=== PATIENT | male | born 1970 | race Hispanic/Latino ===

== ENCOUNTER 2018-11-05 11:20 | Day surgery (SDC) | payer BC ==
[~2018-11-05] VITALS: Ht 180.3 cm; Wt 84.5 kg
[2018-11-05] VITALS (19 sets, daily range): BP systolic 104–118; BP diastolic 49–80
[~2018-11-05 11:20] MED LIST: MULT-40 PO; SODIUM CHLORIDE 0.9% 1000ML 1,000 ML IV ONE
[2018-11-05] MEDS ORDERED: IOHEXOL-350 50ML VIAL IV ONE (11:58)
[2018-11-05] MEDS ORDERED: PROPOFOL 1000 MG/100 ML 100 ML IV ONE (12:48)
[2018-11-05] MEDS ORDERED: FENTANYL CITRATE PF 50 MCG/1 ML 2ML VIAL ONE (13:18)
[2018-11-05] MEDS ORDERED: INDOMETHACIN 50 MG SUPP.RECT RC SCH (14:15)
--- NOTE | 2018-11-05 16:20 | NUR ---
NOTE STEPPED OUT, SON WILL DRIVE PT HOME. WAITING ON SON. Addendum: 11/05/18 at 1642 by KRISSY COLE RN RN ADDENDUM: HAS NOT COME BACK, PT CALLED ON PHONE, NO ANSWER. PT CALLED SON TO DRIVE HIM HOME.
--- NOTE | 2018-11-05 16:35 | NUR ---
NOTE PT DISCHARGED VIA WHEELCHAIR WITH SON. PT STABLE. AFEBRILE. DENIES PAIN, OR ABDOMINAL PAIN. ABDOMEN SOFT. NO NAUSEA OR VOMITING. NO SIGNS OF BLEEDING NOTED. DISCHARGE INSTRUCTIONS GIVEN TO EARLIER.
== END 2018-11-05 16:35 | disposition home or self-care (01) ==
LOC: ENDO 11:20 → DAH 11:20 → ENDO 16:35
PROVIDERS: ATTEND Internal Medicine
DX: K80.50 Calculus of bile duct without cholangitis or cholecystitis without obstruction (principal)
CPT/HCPCS: 43265; 43273; 43276; 74330; A4606; C1769; C1773; J2704; J3010; J7030; Q9967; 43264; 43274; 43275; G9654

== ENCOUNTER 2018-12-29 09:38 | Day surgery (SDC) | payer BC ==
[~2018-12-29] VITALS: Ht 180.3 cm; Wt 86.6 kg
[2018-12-29] VITALS (13 sets, daily range): BP systolic 107–126; BP diastolic 60–78
[2018-12-29] MEDS ORDERED: PROPOFOL 1000 MG/100 ML 100 ML IV ONE (10:43)
[2018-12-29] MEDS ORDERED: IOHEXOL-350 50ML VIAL IV ONE (11:15)
[2018-12-29] MEDS ORDERED: INDOMETHACIN 50 MG SUPP.RECT RC SCH (11:15)
[2018-12-29] MEDS ORDERED: SUCCINYLCHOLINE CHLORIDE 20 MG/ML 10 ML VIAL ONE (11:15)
[2018-12-29] MEDS ORDERED: FENTANYL CITRATE PF 50 MCG/1 ML 2ML VIAL ONE (11:35)
[2018-12-29] MEDS ORDERED: PROPOFOL 10 MG/ML 20ML VIAL IV ONE ×3 (12:02→12:33)
--- NOTE | 2018-12-29 14:30 | NUR ---
INSTRUCTED PT TO MECHATRONICS ENGINEER ORDER AT DR. MAR'S OFFICE TODAY OR TOMORROW FOR CMP LAB DRAW. POST CARE INSTRCTIONS GIVEN TO PT, INSTRUCTED PT TO STAY W/O FOOD OR LIQUIDS FOR 6 HOURS, MAY RESUME EATING AT 7 PM TODAY, TO START WITH LIQUID DIET THEN ADVANCE TOLERATED TO SOFT THEN SOLIDS. PT STABLE, NO C/O PAIN. PT DRESSED, TAKEN TO CAR IN WHEELCHAIR, DRIVEN HOME BY GIRLFRIEND.
== END 2018-12-29 14:30 | disposition home or self-care (01) ==
LOC: DAH 09:38 → ENDO 09:38
PROVIDERS: ATTEND Internal Medicine
DX: K80.50 Calculus of bile duct without cholangitis or cholecystitis without obstruction (principal); Z98.890 Other specified postprocedural states; Z79.899 Other long term (current) drug therapy
CPT/HCPCS: 43265; 43273; 43275; 74330; A4606; C1769; C1773; J0330; J2704 ×4; J3010; J7030; Q9967; 43262; 43264; 43277; G9654

== ENCOUNTER 2019-04-07 06:02 | Day surgery (SDC) | payer BC ==
[2019-04-07] VITALS (15 sets, daily range): BP systolic 106–126; BP diastolic 53–75
[~2019-04-07] VITALS: Ht 177.8 cm; Wt 84.4 kg
[~2019-04-07 06:02] MED LIST changes: -SODIUM CHLORIDE 0.9% 1000ML 1,000 ML IV ONE
[2019-04-07] MEDS ORDERED: SODIUM CHLORIDE 0.9% 1000ML 1,000 ML IV ONE (06:05)
[2019-04-07] MEDS ORDERED: IOHEXOL-350 50ML VIAL IV ONE (06:23)
[2019-04-07] MEDS ORDERED: INDOMETHACIN 50 MG SUPP.RECT RC SCH (06:30)
[2019-04-07] MEDS ORDERED: LIDOCAINE PF 2% 5ML ABBOJECT ONE (06:33)
[2019-04-07] MEDS ORDERED: MIDAZOLAM HCL 1 MG/ML 2ML VIAL ONE (06:33)
[2019-04-07] MEDS ORDERED: PROPOFOL 10 MG/ML 20ML VIAL IV ONE (06:33)
[2019-04-07] MEDS ORDERED: SUCCINYLCHOLINE 200MG/10ML SYR ONE ×2 (06:33→06:35)
[2019-04-07] MEDS ORDERED: FENTANYL CITRATE PF 50 MCG/1 ML 2ML VIAL ONE (06:34)
[2019-04-07] MEDS ORDERED: ROCURONIUM 10MG/1ML SYR 10 MG/ML ML ONE (06:35)
[2019-04-07] MEDS ORDERED: SUCCINYLCHOLINE CHLORIDE 20 MG/ML 10 ML VIAL ONE (06:45)
== END 2019-04-07 09:55 | disposition home or self-care (01) ==
LOC: DAH 06:02 → ENDO 06:02
PROVIDERS: ATTEND Internal Medicine
DX: K80.50 Calculus of bile duct without cholangitis or cholecystitis without obstruction (principal)
CPT/HCPCS: 43264; 43274; 74328; A4606; C1773; C2625; J0330 ×3; J2001; J2250; J2704; J3010; J7030; Q9967; 74330